=== PATIENT | male | born 2000 | race Two or more races ===

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

== ENCOUNTER 2019-04-04 13:04 | Emergency (ER) | payer MEDICAID, OTHER ==
[~2019-04-04] VITALS: Ht 175.3 cm; Wt 101.2 kg
--- NOTE | 2019-04-04 13:35 | NUR ---
PT SENT FROM FOR ABNORMAL EKG. PT WENT TO ARE ALLERGIC REACTION TO CAT DANDER. HX ASTHMA. PT CONNECTED TO MONITORING. MOM AT BEDSIDE. CALL LIGHT IN REACH. MD AT BEDSIDE. AWAITING ORDERS AT THIS TIME.
[2019-04-04] MEDS ORDERED: ALBUTEROL/IPRATROPIUM 2.5MG/0.5MG, 3 ML ONE (13:48)
--- NOTE | 2019-04-04 13:50 | NUR ---
MEDS ADMIN PER MAY. RT AT BEDSIDE. STATED EKG NORMAL.
[2019-04-04] MEDS ORDERED: ALBUTEROL/IPRATROPIUM 2.5MG/0.5MG, 3 ML NPPB ONE (14:00)
--- NOTE | 2019-04-04 14:48 | NUR ---
ALL RESULTS ARE BACK AT THIS TIME. CHART UP FOR RECHECK.
[2019-04-04 15:02] VITALS: BP 119/68
--- NOTE | 2019-04-04 15:03 | NUR ---
PT STATES HE IS FEELING BETTER AFTER NEB TX AND PREDNISONE. MARIAJOSE.
== END 2019-04-04 15:40 | disposition home or self-care (01) ==
LOC: ED 14:23
DX: J98.01 Acute bronchospasm (principal)
CPT/HCPCS: 71045; 93005; 94640; J7512; J7620; 99283